=== PATIENT | male | born 1985 | race Caucasian/White ===

== ENCOUNTER 2020-08-31 01:46 | Emergency (ER) | payer OTHER, SELFPAY ==
[2020-08-31 02:09] VITALS: BP 149/86; PULSE 73; RESP 16; TEMP 36.6; O2SAT 97; BMI 34.9
[2020-08-31 02:19] LABS: MANUAL DIFF FLAG NO
[2020-08-31 02:20] LABS: Basophils Percent Auto 0.4 % (0-2); Eosinophils Absolute Auto 0.1 X10*3/uL (0.0-0.4); Eosinophils Percent Auto 0.6 % (0-4); Hematocrit 43.5 % (42-52); Hemoglobin 14.8 g/dl (14.0-18.0); Imm Gran Abs Auto 0.02 X10*3/uL (0.00-0.03); Imm Gran Pct Auto 0.2 % (0.0-0.4); Lymphocytes Absolute Auto 2.1 X10*3/uL (1.2-4.9); Lymphocytes Percent Auto 21.2 % (20-40); Mean Corpuscular Hemoglobin 29.4 pg (27.0-33.0); Mean Corpuscular Volume 86.3 fL (80-98); Mean Platelet Volume 11.9 fL (9.4-12.4); Monocytes Absolute Auto 0.6 X10*3/uL (0.1-1.2); Monocytes Percent Auto 6.2 % (2-11); Neutrophils Absolute Auto 7.1 X10*3/uL (2.0-8.3); Neutrophils Percent Auto 71.4 % (45-73); Platelet Count 255 X10*3/uL (160-400); Red Blood Count 5.04 X10*6/uL (4.60-5.80); Red Cell Distribution Width 13.3 % (11.0-16.0); White Blood Count 9.9 X10*3/uL (4.8-10.8)
--- NOTE | 2020-08-31 02:25 | PC.NURSE ---
IV established, labs obtained. Pt awaiting primary MD avila.
--- NOTE | 2020-08-31 02:49 | ED_ITS ---
HPI - Nausea/Vomiting/Diarrhea General Chief complaint: Nausea/Vomiting/Diarrhea Stated complaint: Vomiting Time Seen by Provider: 08/31/20 02:49 Source: patient Mode of arrival: ambulatory History of Present Illness HPI Narrative: This is a 35-year-old male who states that he had a migraine on Saturday and then continued with 2-3 days nausea vomiting. He took 1 dose of Zofran yesterday morning which he states helped, but then did not repeat Zofran later and continued to be nauseous with some episodes of vomiting. He does endorse that he smokes marijuana and the last time he states he smoked marijuana was 3 days ago. It was after the multiple episodes of nausea and vomiting that he developed abdominal discomfort without urinary symptoms, fevers, chills, shortness of breath, chest pain/palpitations. Related Data Allergies Allergy/AdvReac Type Severity Reaction Status Date / Time No Known Allergies Allergy Unverified 03/17/20 15:23 [No Known Allergies*] Review of Systems Review of Systems: Pertinent positives and negatives as stated in HPI 10 point review of systems is otherwise negative. PMFSH Past Medical History Source: nursing notes reviewed Medical History Migraine Social History Social History Advance Directives: No Physical Exam Vital Signs: Vital Signs: Last Vital Signs Temp 97.9 F 08/31/20 02:09 Pulse 73 08/31/20 04:00 Resp 18 08/31/20 04:00 BP 138/67 08/31/20 04:00 Pulse Ox 95 08/31/20 04:00 Body Mass Index 34.9 VITAL SIGNS: Reviewed. GENERAL: Well developed, well nourished, in no acute distress. OROPHARYNX: no oral lesions noted, posterior pharynx clear NECK: Supple, no adenopathy LUNGS: Normal breath sounds. No adventitious sounds or accessory muscle use. SpO2<95> CARDIOVASCULAR: Regular rate and rhythm without noted murmurs ABDOMEN: Soft, non-tender, non-distended with bowel sounds. SKIN: Inspection of the skin reveals no rashes NEUROLOGIC: Alert and oriented x 4. Course Course Course Narrative: This is a 35-year-old male with history and clinical presentation consistent with both migraines as well as marijuana use which may have initiated patient's nausea and vomiting, however the persistence after the resolution of the migraine is most consistent with the marijuana use and patient is likely suffering from a mild dehydration. In addition, suspect gastritis. Otherwise low clinical suspicion for pancreatitis, cholecystitis, SBO, a UTI. Patient will receive Zofran and IV fluids. Review of all investigations is is negative for any acute findings other than mild evidence dehydration. On re-evaluation patient reports improvement and he was able tolerate oral intake prior to discharge. MDM - Nausea/Vomiting/Diarrhea Lab Data Result diagrams: 08/31/20 02:15 08/31/20 02:15 Labs: Lab Results 08/31/20 08/31/20 Range/Units 02:15 02:15 WBC 9.9 (4.8-10.8) X10*3/uL RBC 5.04 (4.60-5.80) X10*6/uL Hgb 14.8 (14.0-18.0) g/dl Hct 43.5 (42-52) % MCV 86.3 (80-98) fL MCH 29.4 (27.0-33.0) pg MCHC 34.0 (31.0-36.0) g/dl RDW 13.3 (11.0-16.0) % Plt Count 255 (160-400) X10*3/uL MPV 11.9 (9.4-12.4) fL Immature Gran % (Auto) 0.2 (0.0-0.4) % Neut % (Auto) 71.4 (45-73) % Lymph % (Auto) 21.2 (20-40) % [place] % (Auto) 6.2 (2-11) % Eos % (Auto) 0.6 (0-4) % Baso % (Auto) 0.4 (0-2) % Lymph # (Auto) 2.1 (1.2-4.9) X10*3/uL [place] # (Auto) 0.6 (0.1-1.2) X10*3/uL Eos # (Auto) 0.1 (0.0-0.4) X10*3/uL Baso # (Auto) 0.0 (0.0-0.2) X10*3/uL Abs Immat Gran (auto) 0.02 (0.00-0.03) X10*3/uL Absolute Neuts (auto) 7.1 (2.0-8.3) X10*3/uL Absolute Nucleated RBC 0.000 (0.0-0.012) X10*3/uL Nucleated RBC % (auto) 0.0 (0.0-0.2) /100WBC Sodium 139 (135-145) mmol/L Potassium 3.9 (3.3-5.1) mmol/L Chloride 103 (96-108) mmol/L Carbon Dioxide 27 (22-29) mmol/L Anion Gap 13 (12-20) BUN 17 H (9-16) mg/dL Creatinine 1.05 (0.5-1.4) mg/dL Estim Creat Clear Calc 89.3 Estimated GFR > 60 Random Glucose 111 (60-115) mg/dL Calcium 11.3 H (8.4-10.2) mg/dL Total Bilirubin 1.0 (0.0-1.0) mg/dL Direct Bilirubin 0.3 (0.0-0.5) mg/dL AST 27 (5-37) U/L ALT 33 (0-40) U/L Alkaline Phosphatase 91 (39-117) U/L Total Protein 7.9 (6.5-8.0) g/dL Albumin 4.9 (3.5-5.0) g/dL Lipase 8 (8-78) U/L Discharge Plan Discharge Clinical Impression: Dehydration Nausea & vomiting Qualifiers: Vomiting type: unspecified Vomiting Intractability: non-intractable Qualified Code(s): R11.2 - Nausea with vomiting, unspecified Gastritis Qualifiers: Gastritis type: unspecified gastritis Chronicity: acute Gastritis bleeding: without bleeding Qualified Code(s): K29.00 - Acute gastritis without bleeding Patient Disposition: Home, Self-Care Instructions: Gastritis (ED), Dehydration (ED), Diet for Stomach Ulcers and Gastritis (ED), Acute Nausea and Vomiting (ED) Additional Instructions: Recommend following up with your primary care provider in the next 1-2 days for re-evaluation. Do not hesitate to return to the emergency department for any acute worsening of her symptoms. Referrals: Physician,Unknown [Primary Care Provider] - 2 days
[2020-08-31 02:56] LABS: Alanine Aminotransferase 33 U/L (0-40); Albumin Level 4.9 g/dL (3.5-5.0); Alkaline Phosphatase 91 U/L (39-117); Anion Gap 13 (12-20); Aspartate Amino Transferase 27 U/L (5-37); Bilirubin Direct 0.3 mg/dL (0.0-0.5); Blood Urea Nitrogen 17 mg/dL (9-16); Calcium 11.3 mg/dL (8.4-10.2); Carbon Dioxide 27 mmol/L (22-29); Chloride 103 mmol/L (96-108); Creatinine Clr Calc Pharmacy 89.3; Estimated Glomerular Filt Rate > 60; Glucose Random 111 mg/dL (60-115); Lipase 8 U/L (8-78); Potassium 3.9 mmol/L (3.3-5.1); Sodium 139 mmol/L (135-145); Total Protein 7.9 g/dL (6.5-8.0)
[2020-08-31] MEDS: 0.9 % Sodium Chloride 1,000 ML 999 ML IV (03:06)
--- NOTE | 2020-08-31 03:07 | PC.NURSE ---
Pt medicated per MAR. IVF infusing. VSS. Continue to monitor.
[2020-08-31 04:00] VITALS: BP 138/67; PULSE 73; RESP 18; O2SAT 95
[2020-08-31] MEDS: Magnesium Hydrox/Alum Hydrox 30 ML ORAL.SUSP PO (04:42)
[2020-08-31] MEDS: Lidocaine HCl Viscous 2 % 15 ML SOLUTION 10 ML MUCOUS MEM (04:42)
[2020-08-31 04:44] VITALS: BP 138/67; PULSE 77; RESP 16; O2SAT 97
--- NOTE | 2020-08-31 04:51 | PC.NURSE ---
Pt tolerating PO challenge, able to hold down water and crackers. Pt medicated with GI cocktail per AUG. VSS. IV removed. Pt provided with DC paperwork.
== END 2020-08-31 04:53 | disposition home or self-care (01) ==
PROVIDERS: Emergency Provider Student in an Organized Health Care Education/Training Program
DX: K29.00 Acute gastritis without bleeding (principal); R11.2 Nausea with vomiting, unspecified; Z79.899 Other long term (current) drug therapy
CPT/HCPCS: 36415; 80048; 80076; 83690; 85025; 96360; 99284

== ENCOUNTER 2022-08-17 14:11 | Emergency (ER) | payer OTHER, SELFPAY ==
--- NOTE | ~2022-08-17 | XR_ITS ---
EXAMINATION: XR HIP, RIGHT CLINICAL INFORMATION: Pain. COMPARISON: CT abdomen/pelvis earlier today. TECHNIQUE: Two views of the right hip. FINDINGS: No acute fractures or malalignment. ORIF changes in the left hip. No evidence of hardware failure. No periprosthetic fracture. Subcortical sclerosis and joint space narrowing in the left greater than right hips. SI joints are symmetric. Pubic symphysis is maintained. No abnormal soft tissue calcifications. XR/XR hip RT w [id number] IMPRESSION: 1. No acute fractures or malalignment. 2. ORIF changes in the left hip without evidence of hardware failure or periprosthetic fracture.
--- NOTE | ~2022-08-17 | CT_ITS ---
EXAMINATION: CT ABDOMEN AND PELVIS WITHOUT CONTRAST CLINICAL INFORMATION: Left sided pain COMPARISON: None TECHNIQUE: Multidetector volumetric imaging was performed from the superior aspect of the liver through the pubic symphysis. Sagittal and coronal reformatted images were obtained on the technologist's workstation. This CT examination was performed using dose optimization techniques as appropriate, variously including the following: *Automated exposure control *Adjustment of mA and/or kV according to patient size (this includes techniques or standardized protocols for targeted exams where dose is matched to indication/reason for exam; i.e. extremities or head) *Use of iterative reconstruction technique DLP: 551 mGy-cm FINDINGS: LUNG BASES: The visualized lung bases are unremarkable. LIVER, GALLBLADDER, AND BILIARY TREE: The liver is normal in size, shape, and attenuation. No focal hepatic lesion or biliary ductal dilatation is present. The gallbladder is unremarkable with no evidence of radiopaque gallstones, gallbladder wall thickening, or obvious pericholecystic inflammatory changes. PANCREAS: Unremarkable. SPLEEN: Unremarkable. ADRENAL GLANDS: Unremarkable. KIDNEYS AND URETERS: The kidneys are normal in size, shape, and attenuation. No hydronephrosis, hydroureter, or calculi seen. No perinephric stranding. BLADDER: Unremarkable. GASTROINTESTINAL TRACT: Minimal scattered diverticula. No acute auditory changes. Normal appendix. No fluid collection. ABDOMINAL WALL: No significant hernia is appreciated. LYMPH NODES: Normal. VASCULAR: Unremarkable. PELVIC VISCERA: Unremarkable. OSSEOUS STRUCTURES: ORIF changes left hip. Severe degeneration L5-S1 disc space. CT/CT abdomen pelvis wo IV con IMPRESSION: No stones or obstructive uropathy. No acute inflammatory changes. Fleischner guidelines were followed.
[2022-08-17 14:17] VITALS: BP 110/79; PULSE 60
[2022-08-17 14:18] VITALS: BP 133/83; PULSE 55; RESP 20; TEMP 36.6; O2SAT 98; BMI 34.7
--- NOTE | 2022-08-17 14:20 | ED_ITS ---
HPI - Abdominal Pain General Chief Complaint: Nausea/Vomiting/Diarrhea <JAY JAY Turpin - Last Filed: 08/17/22 14:23> Stated Complaint: N/abd pain per EMS <JAY JAY Turpin - Last Filed: 08/17/22 14:23> Time Seen by Provider: 08/17/22 21:08 <JAY JAY Turpin - Last Filed: 08/17/22 14:23> Source: patient and RN notes reviewed <Adams Tillman - Last Filed: 08/17/22 23:58> Mode of arrival: EMS <Adams Tillman - Last Filed: 08/17/22 23:58> Limitations: no limitations <Adams Tillman - Last Filed: 08/17/22 23:58> History of Present Illness HPI narrative: 37-year-old male past medical history significant for chronic back pain migraines presents for evaluation of abdominal pain. Patient reports that he went out drinking last night for vertical normal saline he states that he woke up this morning without 100.1 on hold nausea and vomiting of the day today. He was in some Ativan because he had severe, stabbing, left-sided abdominal pain He states the pain is at worst 10/10, constant. He denies any fevers, chills, upper respiratory symptoms. Denies any history of abdominal surgeries He also complains of right hip pain but he is unsure of why and denies any falls or injuries that he can remember <Adams Tillman - Last Filed: 08/17/22 23:58> Related Data Home Medications: Home Medications Medication Instructions Recorded Confirmed metoclopramide HCl 10 mg tablet mg PO 09/07/20 02/02/22 sumatriptan succinate 50 mg tablet mg PO 09/07/20 02/02/22 topiramate 50 mg tablet mg PO 09/07/20 02/02/22 Previous Rx's Medication Instructions Recorded ondansetron HCl 4 mg tablet 4 mg PO Q8H PRN nausea and 08/31/20 (Zofran) vomiting #7 tabs ondansetron 4 mg disintegrating 4 mg PO Q8H PRN nausea and 08/17/22 tablet vomiting #20 tabs <JAY JAY Turpin Last Filed: 08/17/22 14:23> Allergies/Adverse Reactions: Allergies Allergy/AdvReac Type Severity Reaction Status Date / Time No Known Allergies Allergy Verified 02/02/22 09:45 [No Known Allergies*] <JAY JAY Turpin - Last Filed: 08/17/22 14:23> Review of Systems Constitutional: Reports as per HPI, Denies chills and Denies fatigue <Adams Tillman - Last Filed: 08/17/22 23:58> Cardiovascular: Denies chest pain and Denies dyspnea <Adams Tillman - Last Filed: 08/17/22 23:58> Respiratory: Denies cough and Denies dyspnea <Adams Tillman - Last Filed: 08/17/22 23: 58> Gastrointestinal: Reports abdominal pain, Denies constipation, Reports nausea and Reports vomiting <Adams Tillman - Last Filed: 08/17/22 23:58> Genitourinary: Denies difficulty urinating and Denies dysuria <Adams Tillman - Last Filed: 08/17/22 23:58> Musculoskeletal: Reports arthralgias (Right hip pain) <Adams Tillman - Last Filed: 08/17/22 23:58> Endocrine: Denies fatigue <Adams Tillman - Last Filed: 08/17/22 23:58> [facility] Past Medical History Medical History: Medical History (Updated 08/17/22 @ 21:53 by Adams Tillman) Migraine <JAY JAY Turpin - Last Filed: 08/17/22 14:23> Family History Family History: Family History Mother Hypertension Father Arthritis <JAY JAY Turpin - Last Filed: 08/17/22 14:23> Social History Social History: Social History (Updated 09/07/20 @ 09:25 by MANUELA Joseph) Housing: House Alcohol intake: current Alcohol intake frequency: holidays/special occasions only Patient Tobacco Use Status: Never used Tobacco e-Cigarette/Vaping Use: Never Used Second Hand Smoke Exposure: No Advance Directives: No Advance Directives Information Provided: No service: No Current occupational status: employed Cognitive needs: No Hearing needs: No Vision needs: No <JAY JAY Turpin - Last Filed: 08/17/22 14:23> Physical Exam ED Vital Signs: Vital Signs - 24 hr 08/17/22 14:18 08/17/22 23:28 Temperature 97.9 F Pulse Rate 55 59 Respiratory Rate 20 16 Blood Pressure 133/83 130/90 H Pulse Oximetry 98 99 Oxygen Delivery Method Room Air Room Air BMI result Body Mass Index 34.7 <JAY JAY Turpin - Last Filed: 08/17/22 14:23> Vital Signs - 24 hr 08/17/22 14:18 08/17/22 23:28 Temperature 97.9 F Pulse Rate 55 59 Respiratory Rate 20 16 Blood Pressure 133/83 130/90 H Pulse Oximetry 98 99 Oxygen Delivery Method Room Air Room Air BMI result Body Mass Index 34.7 <Adams Tillman - Last Filed: 08/17/22 23:58> Const General: healthy appearing, comfortable, no acute distress, alert and awake <Adams Tillman - Last Filed: 08/17/22 23:58> Nutritional Appearance: well nourished <Adams Tillman - Last Filed: 08/17/22 23:58> Orientation/consciousness: patient oriented x3 <Adams Tillman - Last Filed: 08/17/22 23:58> Eyes Eyelids: Yes eyelids normal <Adams Tillman - Last Filed: 08/17/22 23:58> Conjunctivae: conjunctivae normal <Adams Tillman - Last Filed: 08/17/22 23:58> Sclerae: sclerae normal <Adams Tillman - Last Filed: 08/17/22 23:58> Corneas: corneas normal <Adams Juaresy - Last Filed: 08/17/22 23:58> Pupils: Equal, round and reactive pupils present <Adams Tillman - Last Filed: 08/17/22 23:58> EOM: EOMs intact bilaterally <Adams Juaresy - Last Filed: 08/17/22 23:58> Resp Effort & Inspection: normal respiratory effort, able to speak in complete sentences, no audible wheezes and not labored <Adams Juaresy - Last Filed: 08/17/22 23:58> GI Inspection: Yes normal to inspection and No distended <Adamsjose g Juaresy - Last Filed: 08/17/22 23:58> Palpation (GI): Soft to palpation and Tenderness to palpation present (GI) in the epigastrum and in the LUQ; not in the RUQ, not at McBurney's point, Tatum's sign negative and with no rebound tenderness <Adams OJersey - Last Filed: 08/17/22 23:58> Auscultation: normoactive bowel sounds <Adams GitaJersey - Last Filed: 08/17/22 23:58> Skin General skin exam: no rashes or lesions noted and elasticity normal < - Last Filed: 08/17/22 23:58> Lesions: no lesions <Adams Gita - Last Filed: 08/17/22 23:58> Rashes: no rashes <Adams Gita - Last Filed: 08/17/22 23:58> Neuro General: patient oriented x3 <Adams Gita - Last Filed: 08/17/22 23:58> Cranial nerves: Yes Equal, round and reactive pupils present <Adams O[place] - Last Filed: 08/17/22 23:58> Extrem Other: Patient has vague tenderness to the right hip area without focal deformity. No shortening or rotation of the right lower extremity <Adams OAdam - Last Filed: 08/17/22 23:58> General: Yes full ROM <Adams O[place] - Last Filed: 08/17/22 23:58> Right lower extremity: normal to inspection, full ROM and hip/thigh <Adamsjose g Juaresy - Last Filed: 08/17/22 23:58> Course Course Course Narrative: RME-14:20pm - 37yoM presenting to the ED with complaints of nausea/vomiting with left upper quadrant/left flank abdominal pain that started this morning. Reports that he did drink last night. Reports that he occasionally drinks once a month. Denies any sick contacts that he is aware of. Reports that he does have a sore throat although reports he might be related from vomiting. He denies any fevers, cough, nasal congestion, diarrhea constipation or any other symptoms complaints or concerns at this time. Patient received Zofran while in EMS. Plan: Will obtain labs and a CT scan abdomen pelvis with IV contrast. Patient will be sent back to the waiting room to be evaluated in the ED. <JAY JAY Turpin - Last Filed: 08/17/22 14:23> Medical Decision Making Medical Decision Making [facility] Narrative: The patient is well appearing, he is not tachycardic, he is normotensive and afebrile. He has a leukocytosis of 13.3 1000 which is likely reactive to his vomiting. There is no evidence of infection, is abdominal pain and vomiting is likely related to alcoholic gastritis from drinking last night. He has no evidence of alcohol withdrawal. His BUN is slightly above normal at 18, his creatinine within normal limits at 1.16 will treat with a L of IV fluids, Zofran, Protonix. Unclear of the source of the patient's right hip pain, although he may have injured last night without membrane. We did x-ray of the area though have low suspicion for significant injury. <Adams Tillman - Last Filed: 08/17/22 23:58> Differential Diagnosis Vomiting Dehydration Alcohol abuse Alcohol withdrawal Cholecystitis Pancreatitis Appendicitis Right hip arthritis Hip fracture less likely Hip contusion <Adams Tillman - Last Filed: 08/17/22 23:58> Lab Data [facility] Lab Attestation statement: I reviewed the patient's lab results. <Adams Tillman - Last Filed: 08/17/22 23:58> Result Diagrams: 08/17/22 15:44 08/17/22 15:44 <JAY JAY Turpin - Last Filed: 08/17/22 14:23> Labs: Lab Results 08/17/22 08/17/22 08/17/22 Range/Units 14:51 14:51 15:44 WBC 13.3 H (4.8-10.8) X10*3/uL RBC 5.04 (4.60-5.80) X10*6/uL Hgb 14.9 (14.0-18.0) g/dl Hct 44.4 (42.0-52.0) % MCV 88.1 (80.0-98.0) fL MCH 29.6 (27.0-33.0) pg MCHC 33.6 (31.0-36.0) g/dl RDW 13.2 (11.0-16.0) % Plt Count 230 (160-400) X10*3/uL MPV 11.8 (9.4-12.4) fL Immature Gran % (Auto) 0.3 (0.0-0.4) % Neut % (Auto) 89.7 H (45-73) % Lymph % (Auto) 6.1 L (20-40) % [place] % (Auto) 3.6 (2-11) % Eos % (Auto) 0.0 (0-4) % Baso % (Auto) 0.3 (0-2) % Lymph # (Auto) 0.8 L (1.2-4.9) X10*3/uL [place] # (Auto) 0.5 (0.1-1.2) X10*3/uL Eos # (Auto) 0.0 (0.0-0.4) X10*3/uL Baso # (Auto) 0.0 (0.0-0.2) X10*3/uL Abs Immat Gran (auto) 0.04 H (0.00-0.03) X10*3/uL Absolute Neuts (auto) 11.9 H (2.0-8.3) x10*3/uL Absolute Nucleated RBC 0.000 (0.0-0.012) X10*3/uL Nucleated RBC % (auto) 0.0 (0.0-0.2) /100WBC PT (10.0-13.1) SEC INR (0.9-1.1) Sodium (135-145) mmol/L Potassium (3.3-5.1) mmol/L Chloride (96-108) mmol/L Carbon Dioxide (22-29) mmol/L Anion Gap (12-20) BUN (9-16) mg/dL Creatinine (0.5-1.4) mg/dL Estim Creat Clear Calc Estimated GFR Random Glucose (60-115) mg/dL Calcium (8.4-10.2) mg/dL Magnesium (1.6-2.6) mg/dL Total Bilirubin (0.0-1.0) mg/dL AST (5-37) U/L ALT (0-40) U/L Alkaline Phosphatase (39-117) U/L Total Protein (6.5-8.0) g/dL Albumin (3.5-5.0) g/dL Lipase (8-78) U/L Ethyl Alcohol mg/dL Influenza Type A (PCR) NEGATIVE (Negative) Influenza Type B (PCR) NEGATIVE (Negative) RSV RNA Qual (PCR) NEGATIVE (Negative) SARS-CoV-2 RNA (RT-PCR) NEGATIVE (Negative) S. pyogenes GrpA MARGARETH Negative (Negative) 08/17/22 08/17/22 Range/Units 15:44 15:44 WBC (4.8-10.8) X10*3/uL RBC (4.60-5.80) X10*6/uL Hgb (14.0-18.0) g/dl Hct (42.0-52.0) % MCV (80.0-98.0) fL MCH (27.0-33.0) pg MCHC (31.0-36.0) g/dl RDW (11.0-16.0) % Plt Count (160-400) X10*3/uL MPV (9.4-12.4) fL Immature Gran % (Auto) (0.0-0.4) % Neut % (Auto) (45-73) % Lymph % (Auto) (20-40) % [place] % (Auto) (2-11) % Eos % (Auto) (0-4) % Baso % (Auto) (0-2) % Lymph # (Auto) (1.2-4.9) X10*3/uL [place] # (Auto) (0.1-1.2) X10*3/uL Eos # (Auto) (0.0-0.4) X10*3/uL Baso # (Auto) (0.0-0.2) X10*3/uL Abs Immat Gran (auto) (0.00-0.03) X10*3/uL Absolute Neuts (auto) (2.0-8.3) x10*3/uL Absolute Nucleated RBC (0.0-0.012) X10*3/uL Nucleated RBC % (auto) (0.0-0.2) /100WBC PT 11.8 (10.0-13.1) SEC INR 1.0 (0.9-1.1) Sodium 144 (135-145) mmol/L Potassium 4.4 (3.3-5.1) mmol/L Chloride 107 (96-108) mmol/L Carbon Dioxide 26 (22-29) mmol/L Anion Gap 15 (12-20) BUN 18 H (9-16) mg/dL Creatinine 1.16 (0.5-1.4) mg/dL Estim Creat Clear Calc 82.1 Estimated GFR > 60 Random Glucose 100 (60-115) mg/dL Calcium 11.2 H (8.4-10.2) mg/dL Magnesium 2.0 (1.6-2.6) mg/dL Total Bilirubin 0.6 (0.0-1.0) mg/dL AST 18 (5-37) U/L ALT 21 (0-40) U/L Alkaline Phosphatase 95 (39-117) U/L Total Protein 7.9 (6.5-8.0) g/dL Albumin 5.0 (3.5-5.0) g/dL Lipase 9 (8-78) U/L Ethyl Alcohol < 10 mg/dL Influenza Type A (PCR) (Negative) Influenza Type B (PCR) (Negative) RSV RNA Qual (PCR) (Negative) SARS-CoV-2 RNA (RT-PCR) (Negative) S. pyogenes GrpA MARGARETH (Negative) <JAY JAY Turpin - Last Filed: 08/17/22 14:23> Lab Results 08/17/22 08/17/22 08/17/22 Range/Units 14:51 14:51 15:44 WBC 13.3 H (4.8-10.8) X10*3/uL RBC 5.04 (4.60-5.80) X10*6/uL Hgb 14.9 (14.0-18.0) g/dl Hct 44.4 (42.0-52.0) % MCV 88.1 (80.0-98.0) fL MCH 29.6 (27.0-33.0) pg MCHC 33.6 (31.0-36.0) g/dl RDW 13.2 (11.0-16.0) % Plt Count 230 (160-400) X10*3/uL MPV 11.8 (9.4-12.4) fL Immature Gran % (Auto) 0.3 (0.0-0.4) % Neut % (Auto) 89.7 H (45-73) % Lymph % (Auto) 6.1 L (20-40) % [place] % (Auto) 3.6 (2-11) % Eos % (Auto) 0.0 (0-4) % Baso % (Auto) 0.3 (0-2) % Lymph # (Auto) 0.8 L (1.2-4.9) X10*3/uL [place] # (Auto) 0.5 (0.1-1.2) X10*3/uL Eos # (Auto) 0.0 (0.0-0.4) X10*3/uL Baso # (Auto) 0.0 (0.0-0.2) X10*3/uL Abs Immat Gran (auto) 0.04 H (0.00-0.03) X10*3/uL Absolute Neuts (auto) 11.9 H (2.0-8.3) x10*3/uL Absolute Nucleated RBC 0.000 (0.0-0.012) X10*3/uL Nucleated RBC % (auto) 0.0 (0.0-0.2) /100WBC PT (10.0-13.1) SEC INR (0.9-1.1) Sodium (135-145) mmol/L Potassium (3.3-5.1) mmol/L Chloride (96-108) mmol/L Carbon Dioxide (22-29) mmol/L Anion Gap (12-20) BUN (9-16) mg/dL Creatinine (0.5-1.4) mg/dL Estim Creat Clear Calc Estimated GFR Random Glucose (60-115) mg/dL Calcium (8.4-10.2) mg/dL Magnesium (1.6-2.6) mg/dL Total Bilirubin (0.0-1.0) mg/dL AST (5-37) U/L ALT (0-40) U/L Alkaline Phosphatase (39-117) U/L Total Protein (6.5-8.0) g/dL Albumin (3.5-5.0) g/dL Lipase (8-78) U/L Ethyl Alcohol mg/dL Influenza Type A (PCR) NEGATIVE (Negative) Influenza Type B (PCR) NEGATIVE (Negative) RSV RNA Qual (PCR) NEGATIVE (Negative) SARS-CoV-2 RNA (RT-PCR) NEGATIVE (Negative) S. pyogenes GrpA MARGARETH Negative (Negative) 08/17/22 08/17/22 Range/Units 15:44 15:44 WBC (4.8-10.8) X10*3/uL RBC (4.60-5.80) X10*6/uL Hgb (14.0-18.0) g/dl Hct (42.0-52.0) % MCV (80.0-98.0) fL MCH (27.0-33.0) pg MCHC (31.0-36.0) g/dl RDW (11.0-16.0) % Plt Count (160-400) X10*3/uL MPV (9.4-12.4) fL Immature Gran % (Auto) (0.0-0.4) % Neut % (Auto) (45-73) % Lymph % (Auto) (20-40) % [place] % (Auto) (2-11) % Eos % (Auto) (0-4) % Baso % (Auto) (0-2) % Lymph # (Auto) (1.2-4.9) X10*3/uL [place] # (Auto) (0.1-1.2) X10*3/uL Eos # (Auto) (0.0-0.4) X10*3/uL Baso # (Auto) (0.0-0.2) X10*3/uL Abs Immat Gran (auto) (0.00-0.03) X10*3/uL Absolute Neuts (auto) (2.0-8.3) x10*3/uL Absolute Nucleated RBC (0.0-0.012) X10*3/uL Nucleated RBC % (auto) (0.0-0.2) /100WBC PT 11.8 (10.0-13.1) SEC INR 1.0 (0.9-1.1) Sodium 144 (135-145) mmol/L Potassium 4.4 (3.3-5.1) mmol/L Chloride 107 (96-108) mmol/L Carbon Dioxide 26 (22-29) mmol/L Anion Gap 15 (12-20) BUN 18 H (9-16) mg/dL Creatinine 1.16 (0.5-1.4) mg/dL Estim Creat Clear Calc 82.1 Estimated GFR > 60 Random Glucose 100 (60-115) mg/dL Calcium 11.2 H (8.4-10.2) mg/dL Magnesium 2.0 (1.6-2.6) mg/dL Total Bilirubin 0.6 (0.0-1.0) mg/dL AST 18 (5-37) U/L ALT 21 (0-40) U/L Alkaline Phosphatase 95 (39-117) U/L Total Protein 7.9 (6.5-8.0) g/dL Albumin 5.0 (3.5-5.0) g/dL Lipase 9 (8-78) U/L Ethyl Alcohol < 10 mg/dL Influenza Type A (PCR) (Negative) Influenza Type B (PCR) (Negative) RSV RNA Qual (PCR) (Negative) SARS-CoV-2 RNA (RT-PCR) (Negative) S. pyogenes GrpA MARGARETH (Negative) <Adams Tillman - Last Filed: 08/17/22 23:58> Independent Interpretation I performed an independent interpretation of an: Plain X-Ray <Adams Tillman - Last Filed: 08/17/22 23:58> Interpretation: No fracture of the right hip <Adams Tillman - Last Filed: 08/17/22 23:58> Medications Administered Discontinued Medications Generic Name Dose Route Start Last Admin Trade Name Remberto PRN Reason Stop Dose Admin Sodium Chloride 1,000 mls @ 999 mls/hr 08/17/22 21:13 08/17/22 23:42 Ns IV 08/17/22 22:13 Infused .Q1H1M STA Infusion Ondansetron HCl 4 mg 08/17/22 21:13 08/17/22 22:38 Ondansetron Hcl 4 Mg/2 Ml Vial IVPUSH 08/17/22 21:14 4 mg ONCE ONE Administration Pantoprazole Sodium 40 mg 08/17/22 21:13 08/17/22 22:38 Pantoprazole Sodium 40 Mg/10 Ml Vial IVPUSH 08/17/22 21:14 40 mg ONCE ONE Administration <JAY JAY Turpin - Last Filed: 08/17/22 14:23> Medications Administered Discontinued Medications Generic Name Dose Route Start Last Admin Trade Name Remberto PRN Reason Stop Dose Admin Sodium Chloride 1,000 mls @ 999 mls/hr 08/17/22 21:13 08/17/22 23:42 Ns IV 08/17/22 22:13 Infused .Q1H1M STA Infusion Ondansetron HCl 4 mg 08/17/22 21:13 08/17/22 22:38 Ondansetron Hcl 4 Mg/2 Ml Vial IVPUSH 08/17/22 21:14 4 mg ONCE ONE Administration Pantoprazole Sodium 40 mg 08/17/22 21:13 08/17/22 22:38 Pantoprazole Sodium 40 Mg/10 Ml Vial IVPUSH 08/17/22 21:14 40 mg ONCE ONE Administration <Adams Tillman - Last Filed: 08/17/22 23:58> Discharge Plan Discharge Clinical Impression: Acute alcoholic gastritis <JAY JAY Turpin - Last Filed: 08/17/22 14:23> Patient Disposition: Home, Self-Care <JAY JAY Turpin - Last Filed: 08/17/22 14:23> Instructions: Gastritis (ED) <JAY JAY Turpin - Last Filed: 08/17/22 14:23> Additional Instructions: Avoid excessive alcohol consumption is this will likely contribute to worsening abdominal pain. Your workup in the emergency department was reassuring. He may take Zofran for any further nausea or vomiting. The x-ray of your right hip did not show any abnormalities <JAY JAY Turpin - Last Filed: 08/17/22 14:23> Prescriptions: New ondansetron 4 mg tablet,disintegrating 4 mg PO Q8H PRN (Reason: nausea and vomiting) Qty: 20 0RF No Action ondansetron HCl [Zofran] 4 mg tablet 4 mg PO Q8H PRN (Reason: nausea and vomiting) Qty: 7 0RF topiramate 50 mg tablet PO metoclopramide HCl 10 mg tablet PO sumatriptan succinate 50 mg tablet PO <JAY JAY Turpin - Last Filed: 08/17/22 14:23> Interventions: ED Discharge Assessment Last Done: 08/17/22 23:51 <JAY JAY Turpin - Last Filed: 08/17/22 14:23> Discharge Date/Time: 08/17/22 23:51 <JAY JAY Turpin - Last Filed: 08/17/22 14:23>
[2022-08-17 15:11] LABS: IDNOW Serial# 6674DD1D; Strep A Nucleic Acid Negative (Negative)
[2022-08-17 15:48] LABS: Influenza A PCR NEGATIVE (Negative); Influenza B PCR NEGATIVE (Negative); Resp Syncy Virus RNA Qual PCR NEGATIVE (Negative); SARS COV2 PCR INHOUSE NEGATIVE (Negative)
[2022-08-17 15:48] LABS: MANUAL DIFF FLAG NO
[2022-08-17 15:50] LABS: Basophils Percent Auto 0.3 % (0-2); Hematocrit 44.4 % (42.0-52.0); Hemoglobin 14.9 g/dl (14.0-18.0); Imm Gran Abs Auto 0.04 X10*3/uL (0.00-0.03); Imm Gran Pct Auto 0.3 % (0.0-0.4); Lymphocytes Absolute Auto 0.8 X10*3/uL (1.2-4.9); Lymphocytes Percent Auto 6.1 % (20-40); Mean Corpuscular HGB Conc 33.6 g/dl (31.0-36.0); Mean Corpuscular Hemoglobin 29.6 pg (27.0-33.0); Mean Corpuscular Volume 88.1 fL (80.0-98.0); Mean Platelet Volume 11.8 fL (9.4-12.4); Monocytes Absolute Auto 0.5 X10*3/uL (0.1-1.2); Monocytes Percent Auto 3.6 % (2-11); Neutrophils Absolute Auto 11.9 x10*3/uL (2.0-8.3); Neutrophils Percent Auto 89.7 % (45-73); Platelet Count 230 X10*3/uL (160-400); Red Blood Count 5.04 X10*6/uL (4.60-5.80); Red Cell Distribution Width 13.2 % (11.0-16.0); White Blood Count 13.3 X10*3/uL (4.8-10.8)
[2022-08-17 15:56] LABS: Prothrombin Time 11.8 SEC (10.0-13.1)
[2022-08-17 16:11] LABS: Alanine Aminotransferase 21 U/L (0-40); Alkaline Phosphatase 95 U/L (39-117); Anion Gap 15 (12-20); Aspartate Amino Transferase 18 U/L (5-37); Bilirubin Total 0.6 mg/dL (0.0-1.0); Blood Urea Nitrogen 18 mg/dL (9-16); Calcium 11.2 mg/dL (8.4-10.2); Carbon Dioxide 26 mmol/L (22-29); Chloride 107 mmol/L (96-108); Creatinine Clr Calc Pharmacy 82.1; Estimated Glomerular Filt Rate > 60; Ethanol < 10 mg/dL; Glucose Random 100 mg/dL (60-115); Lipase 9 U/L (8-78); Potassium 4.4 mmol/L (3.3-5.1); Sodium 144 mmol/L (135-145); Total Protein 7.9 g/dL (6.5-8.0)
[2022-08-17] MEDS: 0.9 % Sodium Chloride 1,000 ML 999 ML IV (22:38)
[2022-08-17] MEDS: Pantoprazole Sodium 40 MG/10 ML VIAL IVPUSH (22:38)
[2022-08-17] MEDS: ondansetron HCL 4 MG/2 ML VIAL IVPUSH (22:38)
[2022-08-17 23:28] VITALS: BP 130/90; PULSE 59; RESP 16; O2SAT 99
== END 2022-08-17 23:51 | disposition home or self-care (01) ==
PROVIDERS: Physician Assistant Medical; Emergency Provider Emergency Medicine; PCP Internal Medicine
DX: K29.20 Alcoholic gastritis without bleeding (principal); M25.551 Pain in right hip; Z20.822 Contact with and (suspected) exposure to COVID-19; Z20.828 Contact with and (suspected) exposure to other viral communicable diseases
CPT/HCPCS: 0241U; 36415; 73502; 74176; 80053; 82077; 83690; 83735; 85025; 85610; 87651; 96361; 96374; 96375; 99284; J2405